=== PATIENT | male | born 1990 | race Caucasian/White ===

== ENCOUNTER 2018-04-01 20:16 | Emergency (ER) | payer OTHER ==
[~2018-04-01] VITALS: Ht 177.8 cm; Wt 88.0 kg
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
[2018-04-01] MEDS ORDERED: LORAZEPAM INJ 2 MG/ML VIAL ONE ×2 (21:18→22:12)
[2018-04-01] MEDS ORDERED: OLANZAPINE 10 MG VIAL IM ONE (21:18)
[2018-04-01] MEDS: LORAZEPAM INJ 2 MG/ML VIAL IM ONE ×2 (21:19→22:16)
[2018-04-01] MEDS: OLANZAPINE 10 MG VIAL IM ONE (21:20)
[2018-04-01] MEDS ORDERED: diphenhydrAMINE HCL 50 MG/ML VIAL ONE (21:29)
--- NOTE | 2018-04-01 21:30 | NUR ---
PT SPITTING AND AGGRESSIVE TOWARDS STAFF. ER MD AWARE.
[2018-04-01] MEDS: diphenhydrAMINE HCL 50 MG/ML VIAL IM ONE (21:50)
--- NOTE | 2018-04-01 22:00 | NUR ---
PT AGITATED AND YELLING AT STAFF. NAD NOTED. RESPIRATIONS EVEN AND UNLABORED.
--- NOTE | 2018-04-01 22:15 | NUR ---
Note jesús in ED - 04/02/18 at 0229 by DRAKE PT SEDATED, ALL RESTRAINTS REMOVED. PT CALM AND SLEEPING, ON THE PSYCHIATRIC ATTENDANT, O2 2L N/C, VSS. NAD NOTED. RESPIRATION EVEN AND UNLABORED. CALL LIGHT WITHIN REACH.
--- NOTE | 2018-04-01 22:15 | NUR ---
Tawana espinosa in ED - 04/02/18 at 0206 by DRAKE RESTRAINTS RELEASED AND ROTATED, CMS INTACT, CAP REFILL LESS THAN 3 SECS.
--- NOTE | 2018-04-01 22:19 | NUR ---
PT SEDATED, ALL RESTRAINTS REMOVED. PT CALM AND SLEEPING, ON THE TANK RIVETER, O2 2L N/C, VSS. NAD NOTED. RESPIRATION EVEN AND UNLABORED. CALL LIGHT WITHIN REACH.
--- NOTE | 2018-04-01 22:19 | NUR ---
SYSTEMATIC THEOLOGY PROFESSOR AT BEDSIDE FOR LAB DRAW.
[2018-04-01] MEDS ORDERED: TDAP [DIPH/PERTUSSIS/TET] 0.5 ML VIAL IM ONE (22:28)
[2018-04-01 22:30] LABS: BASOPHILS # (AUTO) 0.1 /CMM (0.0-0.2); BASOPHILS % (AUTO) 0.3 % (0.0-2.0); EOSINOPHILS % (AUTO) 0.2 % (0.0-6.0); HEMATOCRIT 48 % (39-51); HEMOGLOBIN 16.4 g/dL (13.5-17.5); LYMPHOCYTES # (AUTO) 1.2 /CMM (0.8-4.8); LYMPHOCYTES % (AUTO) 4.9 % (20.0-44.0); MEAN CORPUSCULAR HGB CONC 34 g/dl (31.0-36.0); MEAN CORPUSCULAR VOLUME 92 fL (80-96); MONOCYTES # (AUTO) 2.2 /CMM (0.1-1.30); MONOCYTES % (AUTO) 8.6 % (2.0-12.0); NEUTROPHILS # (AUTO) 21.7 /CMM (1.8-8.9); PLATELET COUNT (AUTO) 282 /CMM (150-450); RED BLOOD CELL COUNT(AUTO) 5.26 MIL/uL (4.5-6.0); WHITE BLOOD COUNT (AUTO) 25.3 K/uL (4.3-11.0)
[2018-04-01] MEDS: TDAP [DIPH/PERTUSSIS/TET] 0.5 ML VIAL IM ONE (22:30)
[2018-04-01 22:40] LABS: CALCIUM, SERUM 9.1 mg/dL (8.5-10.1); CARBON DIOXIDE 22 mmol/L (21-32); CHLORIDE 104 mmol/L (98-107); CREATININE 1.2 mg/dL (0.6-1.3); GLUCOSE 114 mg/dL (74-106); POTASSIUM 3.3 mmol/L (3.5-5.1); SODIUM SERUM 140 mmol/L (136-145); UREA NITROGEN, BLOOD 12 mg/dL (7-18)
--- NOTE | 2018-04-01 22:46 | NUR ---
Patient is resting comfortably in bed with eyes closed. VSS. NAD NOTED. RESP EVEN AND UNLABORED.
[2018-04-01 22:51] LABS: ACETAMINOPHEN 0 ug/ml (10-30); ALANINE AMINOTRANSFERASE 30 U/L (12-78); ALBUMIN 4.7 g/dL (3.4-5.0); ALCOHOL, BLOOD < 3 mg/dL (0-0); ALKALINE PHOSPHATASE 85 U/L (46-116); ASPARTATE AMINOTRANSFERASE 36 U/L (15-37); BILIRUBIN,DIRECT 0.1 mg/dL (0.0-0.2); BILIRUBIN,TOTAL 0.7 mg/dL (0.2-1.0); SALICYLATE 2.6 mg/dL (2.8-20.0); TOTAL PROTEIN, SERUM 7.5 g/dL (6.4-8.2)
[2018-04-01 23:04] LABS: APPEARANCE,URINE CLEAR (CLEAR); BILIRUBIN,URINE NEGATIVE (NEGATIVE); BLOOD, URINE 2+ Ery/uL (NEGATIVE); COLOR,URINE YELLOW (YELLOW); KETONES,URINE TRACE (NEGATIVE); LEUKOCYTE ESTERASE ,URINE NEGATIVE (NEGATIVE); NITRITE, URINE NEGATIVE (NEGATIVE); PROTEIN,URINE 2+ mg/dl (NEGATIVE); UGLUCOSE NEGATIVE (NEGATIVE); UROBILINOGEN,URINE 0.2 EU/dL (0.2)
[2018-04-01 23:16] LABS: BACTERIA,URINE Few /HPF (None Seen); RBC,URINE 0-2 /HPF (0-2); SQUAMOUS EPITHELIAL CELL,UR Few /HPF (None Seen)
--- NOTE | 2018-04-02 00:31 | NUR ---
Patient is resting comfortably in bed with eyes closed. VSS.
--- NOTE | 2018-04-02 03:54 | NUR ---
Patient discharged to pd in stable condition. Written and verbal after care instructions given. PT [id number]. NAD NOTED. RESPIRATIONS EVEN AND UNLABORED.
[2018-04-02 03:56] VITALS: BP 139/77
== END 2018-04-02 04:37 ==
LOC: ER 20:19
DX: R45.1 Restlessness and agitation (principal); R45.851 Suicidal ideations; T75.4XXA Electrocution, initial encounter; Y04.0XXA Assault by unarmed brawl or fight, initial encounter; Y93.89 Activity, other specified; Y92.89 Other specified places as the place of occurrence of the external cause; Y99.8 Other external cause status
CPT/HCPCS: 36415; 80048-TC; 80074; 80076-TC; 80305; 81000-TC; 82962-TC; 85025-TC; 87806; 90715; G0480; J1200; J2060; J3490